=== PATIENT | male | born 1970 | race Caucasian/White ===

== ENCOUNTER 2022-05-13 18:28 | Emergency (ER) | payer OTHER, MEDICAID, SELFPAY ==
[2022-05-13 19:18] VITALS: BP 149/96; PULSE 109; RESP 18; TEMP 36.4; O2SAT 100; BMI 23.6
--- NOTE | 2022-05-13 19:30 | ED_ITS ---
HPI - Abdominal Pain General Chief Complaint: Abdominal Pain Stated Complaint: abd. pain Time Seen by Provider: 05/13/22 19:30 Source: patient Mode of arrival: Ambulatory History of Present Illness HPI narrative: 51-year-old male smoker with known inguinal hernia presents with chief complaint of severe worsening right lower quadrant pain, difficulty moving his bowels with nausea. He is had this hernia for a few years but states it is significantly worse over the past day or so. He thinks that he was lifting a heavy object while twisting and felt a bulge become the size of his fist and presents here for evaluation. He denies urinary complaints such as dysuria, frequency or urgency. He states typically when he stands up it bulges out more when he lays down it seems to improve Related Data Previous Rx's Medication Instructions Recorded amoxicillin 875 mg-potassium 1 tab PO Q12H #20 tabs 05/14/22 clavulanate 125 mg tablet hydrocodone 5 mg-acetaminophen 325 1 tab PO Q4-6H PRN pain #10 tabs 05/14/22 mg tablet ondansetron 4 mg disintegrating 4 mg PO TID-QID PRN nausea and 05/14/22 tablet vomiting #10 tabs Allergies Allergy/AdvReac Type Severity Reaction Status Date / Time No Known Drug Allergies Allergy Verified 05/13/22 19:25 Review of Systems Review of Systems Narrative: GENERAL: Denies chills, fatigue, malaise, fever, sweats. HEENT: Denies sinus pain, ear pain, sore throat, difficulty swallowing, dizziness. RESPIRATORY: Denies dyspnea, cough, wheezing, hemoptysis, sputum. CARDIOVASCULAR: Denies chest pain, palpitations, orthopnea, edema, GASTROINTESTINAL: See HPI : Denies dysuria, frequency, incontinence, hematuria, urinary retention. MUSCULOSKELETAL: denies weakness, joint pain, or bony pain SKIN: Denies rash, skin lesions, or other NEUROLOGIC: Denies weakness, headache, numbness, change in speech, confusion, seizures, incoordination. PSYCHIATRIC: No concerning psychosocial issues. 12 point review of systems is negative except for those stated above Patient History Social History Smoking Status: Current every day smoker Smoking Status: Current every day smoker Substance Use Type: does not use Exam Narrative Exam Narrative: GENERAL: [51] year old patient appears stated age. Well-developed patient, in mild distress. HEAD: Atraumatic. Normocephalic. EYES: Pupils equal round and reactive. Extraocular motions intact. No scleral icterus. No injection or drainage. ENT: Nose without bleeding, purulent drainage. Throat without erythema, tonsillar hypertrophy or exudate. Airway patent. NECK: Trachea midline. Non tender CARDIOVASCULAR: Regular rate and rhythm without murmurs, gallops, or rubs. RESPIRATORY: Clear to auscultation. Breath sounds equal bilaterally. No wheezes, rales, or rhonchi. GASTROINTESTINAL: Abdomen soft, non-tender, nondistended. : Large tender nonreducible inguinal hernia, no overlying erythema, no other bowel pain EXTREMITIES: No edema or joint tenderness. BACK: Nontender without deformity or crepitance. No flank tenderness. NEURO: AOx3. SKIN: No rash or erythema of visible areas Initial Vital Signs Initial Vital Signs: Vital Signs Temperature 97.6 F 05/13/22 19:18 Pulse Rate 109 H 05/13/22 19:18 Respiratory Rate 18 05/13/22 19:18 Blood Pressure 149/96 H 05/13/22 19:18 Pulse Oximetry 100 05/13/22 19:18 Oxygen Delivery Method 05/13/22 19:18 Course Orders Ordered: Discontinued Medications Hydrocodone Bitart/Acetaminophen (Hydrocodone/Acet 5/325 Prepack) 1 bottle MISC SEEINSTR ONE Stop: 05/14/22 00:59 Last Admin: 05/14/22 01:24 Dose: 1 bottle Documented By: SANJUANITA Amoxicillin/Clavulanate Potassium (Amoxicillin/Clav 875/125 Mg) 1 tab PO NOW ONE Stop: 05/14/22 00:59 Last Admin: 05/14/22 01:24 Dose: 1 tab Documented By: NR Sodium Chloride (Normal Saline 0.9%) 1,000 mls @ 1,000 mls/hr IV BOLUS ONE Stop: 05/14/22 00:27 Last Infusion: 05/14/22 01:34 Dose: 0 mls/hr Documented By: Admin: 05/14/22 00:21 Dose: 1,000 mls/hr Documented By: NR Ondansetron HCl (Ondansetron 4 Mg Odt Prepack) 1 bottle MISC SEEINSTR ONE Stop: 05/14/22 00:59 Last Admin: 10/19/22 01:24 Dose: 1 bottle Documented By: NR Vital Signs Vital signs: Vital Signs - 8 hr 05/13/22 19:18 Temperature 97.6 F Pulse Rate 109 H Respiratory Rate 18 Blood Pressure 149/96 H Pulse Oximetry 100 Oxygen Delivery Method Room Air MDM - Abdominal Pain Lab Data Result diagrams: 05/13/22 19:35 05/13/22 19:35 Labs: Lab Results 05/13/22 05/13/22 Range/Units 19:35 19:35 WBC 9.5 (4.5-11.0) X10^3/uL RBC 4.50 (4.5-5.9) X10^6/uL Hgb 13.3 L (13.5-17.5) g/dL Hct 39.7 L (41-53) % MCV 88.1 (80-100) fL MCH 29.6 (26-34) PG MCHC 33.6 (30-36) % RDW 13.4 (11.6-14.8) % Plt Count 419 H (150-400) X10^3/uL Neut % (Auto) 60.6 (50-75) % Lymph % (Auto) 30.5 (25-40) % [place] % (Auto) 6.7 (3-14) % Eos % (Auto) 1.7 L (2-4) % Baso % (Auto) 0.5 (0-2) % Neut # (Auto) 5700 (7245-0278) /uL Lymph # (Auto) 2900 (9885-7627) /uL [place] # (Auto) 600 (0-900) /uL Eos # (Auto) 200 (0-450) /uL Baso # (Auto) 0 (0-100) /uL Sodium 138 (137-145) mmol/L Potassium 4.3 (3.4-5.1) mmol/L Chloride 104 (98-107) mmol/L Carbon Dioxide 28 (22-32) mmol/L BUN 18 (9-20) mg/dL Creatinine 0.80 (0.66-1.25) mg/dL Estimated GFR > 60 (>60) mL/min BUN/Creatinine Ratio 22.5 H (6-22) Glucose 84 (70-100) mg/dL Calcium 9.3 (8.4-10.2) mg/dL Total Bilirubin 0.6 (0.2-1.3) mg/dL AST 35 (17-59) IU/L ALT 31 (<50) IU/L Alkaline Phosphatase 79 (38-126) U/L Total Protein 7.4 (6.3-8.2) g/dL Albumin 4.4 (3.5-5.0) g/dL Globulin 3.0 (1.7-4.1) g/dL Albumin/Globulin Ratio 1.5 (1.0-2.8) Lipase 40 (23-300) U/L Discharge Plan Departure Patient Disposition: Home Clinical Impression: Colitis, Inguinal hernia Instructions: DI for Groin Hernia, DI for Colitis Activity Restrictions/Additional Instructions: *You have been diagnosed with [abdominal pain due to colitis, and possibly some element of your inguinal hernia] * As we discussed your history and physical exam as well as labs and imaging are very reassuring. There is no evidence of any severe diagnoses that would require a specific or immediate intervention. *What to do: *Please continue to take your regular medications as directed. [x ] New medication prescriptions sent to your pharmacy: [[facility] [place] ] *Please follow up with your primary care provider in 2-3 days, call for an appointment. Let them know you were seen in the Emergency Department and that we ask that you be seen in follow up. We will electronically transmit a record of today's note if your PCP is in our system *Please consider a clear liquid diet for the next 24-48 hours and then slowly advance to regular as tolerated. Also, try to avoid alcohol, nicotine, caffeine, spicy, acidic or fatty foods as this may worsen your symptoms *If you do not have a primary care provider please contact the [facility] Resource line at [phone]. They will ask some questions about your medical history and help get you set up with a doctor in the community. *Return to Emergency Department if you should have any new, worsening or tommie rning symptoms, such as [fever greater than 101 F, shaking chills, worsening pain, persistent vomiting or other bothersome symptoms] Prescriptions: New hydrocodone-acetaminophen 5-325 mg tablet 1 tab PO Q4-6H PRN (Reason: pain) Qty: 10 0RF ondansetron 4 mg tablet,disintegrating 4 mg PO TID-QID PRN (Reason: nausea and vomiting) Qty: 10 0RF amoxicillin-pot clavulanate 875-125 mg tablet 1 tab PO Q12H Qty: 20 0RF Visit Report Forms: Patient Portal/API
[2022-05-13 19:55] LABS: Add Manual Diff / Slide Review NO; Basophils Absolute Auto 0 /uL (0-100); Basophils Percent Auto 0.5 % (0-2); Eosinophils Absolute Auto 200 /uL (0-450); Eosinophils Percent Auto 1.7 % (2-4); Hematocrit 39.7 % (41-53); Hemoglobin 13.3 g/dL (13.5-17.5); Lymphocytes Absolute Auto 2900 /uL (1100-4500); Lymphocytes Percent Auto 30.5 % (25-40); Mean Corpuscular HGB Conc 33.6 % (30-36); Mean Corpuscular Hemoglobin 29.6 PG (26-34); Mean Corpuscular Volume 88.1 fL (80-100); Monocytes Absolute Auto 600 /uL (0-900); Monocytes Percent Auto 6.7 % (3-14); Neutrophils Absolute Auto 5700 /uL (1500-7000); Neutrophils Percent Auto 60.6 % (50-75); Platelet Count 419 X10^3/uL (150-400); Red Cell Distribution Width 13.4 % (11.6-14.8); White Blood Cell Count 9.5 X10^3/uL (4.5-11.0)
[2022-05-13 20:12] LABS: Alanine Aminotransferase 31 IU/L (<50); Albumin 4.4 g/dL (3.5-5.0); Albumin Globulin Ratio 1.5 (1.0-2.8); Alkaline Phosphatase 79 U/L (38-126); Aspartate Aminotransferase 35 IU/L (17-59); BUN Creatinine Ratio 22.5 (6-22); Bilirubin Total 0.6 mg/dL (0.2-1.3); Blood Urea Nitrogen 18 mg/dL (9-20); Calcium 9.3 mg/dL (8.4-10.2); Carbon Dioxide 28 mmol/L (22-32); Chloride 104 mmol/L (98-107); Estimated Glomerular Filt Rate > 60 mL/min (>60); Glucose 84 mg/dL (70-100); HEMOLYSIS 38 (0-50); Lipase 40 U/L (23-300); Potassium 4.3 mmol/L (3.4-5.1); Sodium 138 mmol/L (137-145); Total Protein 7.4 g/dL (6.3-8.2)
--- NOTE | 2022-05-13 23:28 | DI.CT.S_ITS ---
PROCEDURE: CT ABDOMEN PELVIS W CON INDICATIONS: severe RLQ pain with hernia TECHNIQUE: After the administration of intravenous contrast, axial sections acquired from the lung bases to the pubic symphysis. Coronal and sagittal reformats were performed. For radiation dose reduction, the following was used: automated exposure control, adjustment of mA and/or kV according to patient size. COMPARISON: None. FINDINGS: Image quality: Excellent. Lung bases: Dependent atelectasis in posterior aspect of bilateral lung bases are seen.. Heart: No significant findings. ABDOMEN: Liver: Liver is normal in size. At least 5 tiny well-circumscribed hypodensities are seen scattered in right and left hepatic lobes and measures up to 1 cm in size in inferior right hepatic lobe series 2, image 25. Gallbladder: Within normal limits. Biliary ducts: Unremarkable. Pancreas: Unremarkable. Spleen: Unremarkable. Adrenal Glands: Unremarkable. Kidneys and Ureters: Bilateral renal cysts are seen measures up to 5.8 x 4.7 cm in size in upper pole of left kidney series 2, image 20. 3 mm nonobstructing stone in midpole of right kidney is seen series 2, image 32. No hydronephrosis or hydroureter. Stomach and Bowel: There is no bowel obstruction. No stomach or small bowel wall thickening. Appendix is visualized in right lower quadrant and is within normal limits. Wall thickening, edema and mesenteric fat stranding involving ascending colon and proximal to mid sigmoid colon is seen concerning for infectious or inflammatory colitis. No abscess collection. Peritoneum: No abnormal intraperitoneal fluid. No free air. Ventral Wall: No hernias. Abdominal Nodes: No retroperitoneal or mesenteric adenopathy by size criteria. Vessels: Aorta and inferior vena cava are normal in size. PELVIS: Pelvic Organs: Unremarkable. Bladder: Unremarkable. Pelvic Nodes: No enlarged lymph nodes. Miscellaneous: Right inguinal hernia is seen containing fat only. Bones: No suspicious bony lesion. No acute vertebral body compression fracture. Degenerative disc disease at L5-S1 level is seen. IMPRESSION: 1. Finding is concerning for right-sided colitis involving ascending colon, hepatic flexure and proximal to mid transverse colon. No abscess collection. No bowel obstruction. Normal appendix. No free fluid or free air. 2. Bilateral renal cysts and nonobstructing stone in right kidney. No hydronephrosis or hydroureter. 3. Well-circumscribed hypodensities scattered in liver parenchyma likely represent hepatic cysts. Dictated by: Fortino Mattson M.D. on 05/13/2022 at 23:57 Approved by: Fortino Mattson M.D. on 05/14/2022 at 0:01
[2022-05-14] MEDS: SODIUM CHLORIDE 0.9% 1,000 ML 1000 ML IV (00:21)
[2022-05-14] MEDS: HYDROCODONE/ACET 5/325 PREPACK 1 BOTTLE MISC (01:24)
[2022-05-14] MEDS: ONDANSETRON 4 MG ODT PREPACK 1 BOTTLE MISC (01:24)
[2022-05-14] MEDS: AMOXICILLIN/CLAV 875/125 MG 1 TAB PO (01:24)
== END 2022-05-14 01:35 | disposition home or self-care (01) ==
PROVIDERS: Emergency Provider Emergency Medicine
DX: K52.9 Noninfective gastroenteritis and colitis, unspecified (principal); K40.90 Unilateral inguinal hernia, without obstruction or gangrene, not specified as recurrent
CPT/HCPCS: 36415; 74177; 80053; 83690; 85025; 99284; Q9967

== ENCOUNTER 2023-01-30 02:38 | Observation (INO) | payer OTHER, MEDICAID, SELFPAY ==
[2023-01-30] VITALS (11 sets, daily range): BP systolic 127–177; BP diastolic 82–110; PULSE 78–111; RESP 15–20; TEMP 36–36.9; O2SAT 92–99; BMI 25.0; BMI 26.4
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
[2023-01-30 03:22] LABS: Add Manual Diff / Slide Review NO; Basophils Absolute Auto 200 /uL (0-100); Basophils Percent Auto 3.5 % (0-2); Eosinophils Absolute Auto 0 /uL (0-450); Eosinophils Percent Auto 0.6 % (2-4); Hematocrit 36.6 % (41-53); Hemoglobin 12.5 g/dL (13.5-17.5); Lymphocytes Absolute Auto 1100 /uL (1100-4500); Lymphocytes Percent Auto 18.1 % (25-40); Mean Corpuscular HGB Conc 34.2 % (30-36); Mean Corpuscular Hemoglobin 29.4 PG (26-34); Monocytes Absolute Auto 400 /uL (0-900); Neutrophils Absolute Auto 4400 /uL (1500-7000); Neutrophils Percent Auto 70.8 % (50-75); Platelet Count 470 X10^3/uL (150-400); Red Blood Cell Count 4.25 X10^6/uL (4.5-5.9); Red Cell Distribution Width 13.2 % (11.6-14.8); White Blood Cell Count 6.2 X10^3/uL (4.5-11.0)
[2023-01-30] MEDS: TET,DIPH,PERTUSS(ACELL),VAC/PF 0.5 ML SYRINGE IM (03:29)
[2023-01-30] MEDS: SODIUM CHLORIDE 0.9% 1,000 ML 1000 ML IV ×2 (03:29→03:54)
[2023-01-30] MEDS: KETOROLAC 30 MG/ML VIAL 15 MG IV (03:29)
[2023-01-30 03:39] LABS: Alanine Aminotransferase 34 IU/L (<50); Albumin 4.2 g/dL (3.5-5.0); Albumin Globulin Ratio 1.1 (1.0-2.8); Alkaline Phosphatase 139 U/L (38-126); Aspartate Aminotransferase 37 IU/L (17-59); BUN Creatinine Ratio 21.1 (6-22); Bilirubin Total 0.4 mg/dL (0.2-1.3); Blood Urea Nitrogen 15 mg/dL (9-20); Calcium 9.1 mg/dL (8.4-10.2); Carbon Dioxide 32 mmol/L (22-32); Chloride 96 mmol/L (98-107); Creatine Kinase 79 U/L (55-170); Estimated Glomerular Filt Rate > 60 mL/min (>60); Globulin 3.7 g/dL (1.7-4.1); Glucose 102 mg/dL (70-100); HEMOLYSIS < 15 (0-50); Lactate (Lactic Acid) 1.2 mmol/L (0.7-2.1); Potassium 4.5 mmol/L (3.4-5.1); Sodium 135 mmol/L (137-145); Total Protein 7.9 g/dL (6.3-8.2)
[2023-01-30 03:51] LABS: Troponin I < 0.012 ng/mL (0.01-0.034)
[2023-01-30] MEDS: AMPICILLIN/SULBACTAM 3 GM 3 GM in SODIUM CHLORIDE 0.9% 100 ML IV ×4 (03:52→20:44)
[2023-01-30 03:55] LABS: Procalcitonin 0.29 ng/mL (<0.5)
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
[2023-01-30 04:46] LABS: C-Reactive Protein Quant 5.5 mg/dL (<1.0)
[2023-01-30 04:52] LABS: NT-proBNP (BNP-Adult 18+) 21 pg/mL (<125)
[2023-01-30 04:53] LABS: Erythrocyte Sedimentation Rate 63 MM/HR (0-15)
[2023-01-30] MEDS: HYDROCODONE/ACET 5/325 TABLET 2 TAB PO ×2 (05:14→15:29)
[2023-01-30] MEDS: SODIUM CHLORIDE 0.9% 1,000 ML 100 ML IV ×2 (05:14→18:44)
[2023-01-30] MEDS: VANCOMYCIN 1,500 MG/300 ML PIGGYBACK 200 MG IV (05:58)
[2023-01-30 06:46] LABS: MRSA (Nasal) PCR Not Detected (Not Detect)
[2023-01-30] MEDS: NICOTINE 14 PATCH 14 MG TOP (09:17)
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
[2023-01-31] MEDS: AMPICILLIN/SULBACTAM 3 GM 3 GM in SODIUM CHLORIDE 0.9% 100 ML IV ×2 (01:31→08:17)
[2023-01-31] MEDS: HYDROCODONE/ACET 5/325 TABLET 2 TAB PO ×2 (04:00→08:17)
[2023-01-31 04:06] VITALS: BP 165/95; PULSE 88; RESP 20; TEMP 36.8; O2SAT 98
--- NOTE | 2023-01-31 05:02 | PC.NURSE ---
Pt A&Ox4, VSS. Patient asked to use urinal for ordered UA, used toilet instead. Repeated request for use of urinal, pt agreed. Pt refused blood draw from lab.
[2023-01-31 08:43] LABS: Appearance Urine UA CLEAR; Bilirubin Urine UA NEGATIVE (NEGATIVE); Color Urine UA YELLOW; Glucose Urine UA NEGATIVE (Negative); Ketones Urine UA NEGATIVE (NEGATIVE); Leukocyte Esterase Urine UA NEGATIVE (NEGATIVE); Nitrite Urine UA NEGATIVE (Negative); Occult Blood Urine UA NEGATIVE (Negative); Protein Urine UA NEGATIVE (Negative); pH Urine UA 7.5 (4.5-8.0)
[2023-01-31 08:49] LABS: Bacteria Urine None Seen; Culture Indicated Urine Cult Not Indicated; RBC Urine None Seen (0-5/HPF); Squamous Epithelial Cell Urine None Seen (0-5/HPF); WBC Urine None Seen (0-5/HPF)
[2023-01-31 09:14] VITALS: BP 142/94; PULSE 91; RESP 18; TEMP 36.1; O2SAT 96
--- NOTE | 2023-01-31 15:21 | PC.NURSE ---
Discharge: Pt left, time unknown. Had received his discharge paper work, am dose of antibiotics. IV had been removed. Pt had wanted to d/c this am. Arm was much improved and he is able to move his fingers now. Redness has receded from axila. His dtr Hyacinth had come to pick him up.
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
== END 2023-01-31 12:00 | disposition home or self-care (01) ==
LOC: ED 04:26 → AC 04:29
PROVIDERS: Student in an Organized Health Care Education/Training Program; Admitting Provider Nurse Practitioner Family; Emergency Provider Emergency Medicine; Referring Provider Emergency Medicine; Visit Provider Nurse Practitioner Family
DX: L03.113 Cellulitis of right upper limb (principal); S61.451A Open bite of right hand, initial encounter; F17.200 Nicotine dependence, unspecified, uncomplicated; Y04.1XXA Assault by human bite, initial encounter; Z23 Encounter for immunization
CPT/HCPCS: 36415; 73130; 80053; 81001; 82550; 83605; 83880; 84145; 84484; 85025; 85651; 86140; 87040; 87797; 90471; 96365; 96366; 96367; 96375; 99284; G0378; 90715; J0295; J1650; J1885